=== PATIENT | female | born 1960 | race Caucasian/White ===

== ENCOUNTER 2020-01-28 08:07 | Outpatient (REF) | payer MEDICARE, MEDICAID, SELFPAY ==
[2020-01-28 09:09] LABS: MANUAL DIFF FLAG NO
[2020-01-28 09:19] LABS: Basophils Percent Auto 0.5 % (0-2); Eosinophils Absolute Auto 0.1 X10*3/uL (0.0-0.4); Eosinophils Percent Auto 1.4 % (0-4); Hematocrit 40.3 % (37-47); Hemoglobin 13.4 g/dl (12.0-16.0); Imm Gran Abs Auto 0.01 X10*3/uL (0.00-0.03); Imm Gran Pct Auto 0.2 % (0.0-0.4); Lymphocytes Absolute Auto 1.9 X10*3/uL (1.2-4.9); Lymphocytes Percent Auto 32.1 % (20-40); Mean Corpuscular HGB Conc 33.3 g/dl (31.0-35.0); Mean Corpuscular Volume 96.2 fL (80-98); Mean Platelet Volume 10.7 fL (9.4-12.3); Monocytes Absolute Auto 0.3 X10*3/uL (0.1-1.2); Monocytes Percent Auto 5.8 % (2-11); Neutrophils Absolute Auto 3.5 X10*3/uL (2.0-8.3); Platelet Count 213 X10*3/uL (160-400); Red Blood Count 4.19 X10*6/uL (4.20-5.50); Red Cell Distribution Width 12.3 % (11.0-16.0); White Blood Count 5.8 X10*3/uL (4.8-10.8)
[2020-01-28 09:39] LABS: Creatinine Urine 47.05 mg/dL; Microalbum/Creatinine Ratio Ur 48.8 ug/mg cr
[2020-01-28 09:41] LABS: Alanine Aminotransferase 14 U/L (0-31); Albumin Level 4.6 g/dL (3.5-5.0); Alkaline Phosphatase 77 U/L (39-117); Anion Gap 11 (12-20); Aspartate Amino Transferase 22 U/L (5-31); Bilirubin Total 0.5 mg/dL (0.0-1.0); Blood Urea Nitrogen 13 mg/dL (9-16); Calcium 8.8 mg/dL (8.4-10.2); Carbon Dioxide 29 mmol/L (22-29); Chloride 101 mmol/L (96-108); Cholesterol 216 mg/dL; Estimated Glomerular Filt Rate > 60; Glucose Fasting 91 mg/dL (60-99); HDL Cholesterol 72 mg/dL; LDL Cholesterol Calculated 134 mg/dl; Potassium 4.2 mmol/l (3.3-5.1); Sodium 137 mmol/L (135-145); Total Protein 7.2 g/dL (6.5-8.0); Triglycerides 51 mg/dL
== END 2020-01-28 08:08 | disposition home or self-care (01) ==
LOC: HO.LAB 08:07
PROVIDERS: Visit Provider Family Medicine
DX: Z00.00 Encounter for general adult medical examination without abnormal findings (principal)
CPT/HCPCS: 36415; 80053; 80061; 82043; 85025

== ENCOUNTER 2020-02-04 10:35 | Outpatient (REF) | payer MEDICARE, MEDICAID, SELFPAY ==
--- NOTE | 2020-02-04 13:18 | XR_ITS ---
EXAMINATION: XR ANKLE, LEFT CLINICAL INFORMATION: Pain left ankle and joints of the left foot. COMPARISON: Radiographs left ankle and foot 12/05/2019 TECHNIQUE: AP, lateral, and mortise views of the left ankle. FINDINGS: There is no fracture, dislocation, or visible ankle capsular effusion. The malleoli are intact and the ankle mortise is symmetric. The talar dome shows no osteochondral lesion. There is no joint narrowing or erosive change or visible chondrocalcinosis. The subtalar joint is unremarkable. The retrocalcaneal recess is preserved. No calcaneal spurring. XR/XR ankle LT min 3V IMPRESSION: Normal left ankle.
[2020-02-04 14:21] LABS: Rheumatoid Factor < 15.0 IU/mL (<15.0)
[2020-02-04 14:27] LABS: Erythrocyte Sedimentation Rate 11 MM/HR (0-20)
[2020-02-05 14:21] LABS: CRP High Sensitivity 0.7 mg/L
[2020-02-06 12:56] LABS: Scleroderma 70 Antibody 2.4 POS AI (<1.0 NEG)
[2020-02-06 14:52] LABS: Anti Nuclear Antibody Screen NEGATIVE (NEGATIVE)
[2020-02-06 17:12] LABS: Cyclic Citrullinated Peptide <16 UNITS
== END 2020-02-04 10:36 | disposition home or self-care (01) ==
LOC: HO.WFDLDS 10:35
PROVIDERS: PCP Family Medicine; Visit Provider Family Medicine
DX: M25.541 Pain in joints of right hand (principal); M25.542 Pain in joints of left hand; M25.572 Pain in left ankle and joints of left foot
CPT/HCPCS: 36415; 73610; 85652; 86038; 86039; 86141; 86200; 86235; 86431

== ENCOUNTER 2020-04-21 11:00 | Outpatient (RCR) | payer MEDICARE, MEDICAID, SELFPAY ==
--- NOTE | 2020-03-17 11:30 | MHC.PT.EP ---
[facility] [place] Office [place] Office [place] Office [address] Jamil Reynolds [address] [phone] F: [phone] F: [phone] F: [phone] F: [phone] Physical Therapy Plan of Care Date of Evaluation: 03/17/20 Date of Surgery: NA Diagnosis: PAIN IN L ANKLE AND FOOT. HX OF FIBROMYALGIA AND POLYARTHRALGIA Assessment: Pt IS 59 YO F REFERRED TO PT FROM DR QUESADA WITH PAIN IN L ANKLE AND JOINTS OF L FOOT. Pt REPORTS SHE FELL DOWN A FLIGHT (12 STAIRS) IN JANUARY WITH PAIN AND SWELLING L ANKLE. HAS HAD XRAY (NEG FOR FX). USED CRUTCHES AND AIR CAST FOR ABOUT 1 MONTH. Pt REPORTS CONTINUED LIMIT IN MOTION AND PAIN WITH CERTAIN MOVEMENTS OF ANKLE AND WITH PROLONGED STAND/WALK.PRESENTS WITH DECREASED L ANKLE ROM AND STRENGTH. NEG LIMP WITH GT TODAY, DECREASED ABILITY TO SLS L. SHOULD BENEFIT FROM PT TO ADDRESS THESE ISSUES. Frequency and Duration: The patient will be seen 2X/WK X 6 WKS Short Term Goals: 1. I HEP WITH DC EX PLAN 2. INCREASED AWARENESS ANKLE CARE (ICE ELEV PRN) 3. 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 DECREASED PAIN AT LEAST 50% WITH ADLS 2. L ANKLE ROM DF TO 5 DEGREES, PF TO 45 DEGREES, INV TO 25, EVERSION TO 10 3. INCREASED L ANKLE STRENGTH 1/2 -1 MM GRADE T/O 4. SLS L AT LEAST 10 SEC 5. ABLE TO PERF B HEEL RAISE AND TOE RAISE IN STAND WITHOUT NEED TO HOLD ON FOR SUPPORT Treatment Plan: Modalities to reduce pain, spasms and effusion. Manual therapy to restore motion and function. Therapeutic exercise to improve strength and flexibility. Neuromuscular re-education for posture and balance. Therapeutic activities to return to functional activities of daily living. Electronically signed by: HERMILO SCHWARZ PT Please sign and return to therapist. Thank you for your referral.
--- NOTE | 2020-05-05 08:39 | MHC.PT.DC ---
[facility] [place] Office [place] Office [place] Office [address] [phone] F: [phone] F: [phone] F: [phone] F: [phone] Physical Therapy Discharge Report Diagnosis: PAIN IN L ANKLE AND FOOT. HX OF FIBROMYALGIA AND POLYARTHRALGIA Date of Surgery: NA Date of Evaluation: 03/17/20 Date of Discharge: 05/05/20 Treatments to Date: 5 Cancellations to Date: 1 No Shows to Date: 0 Discharge Status: Achieved Goals Improved Function Independent with HEP Discharge Summary: HAS MET PT GOALS, GOOD PERF EXS. CHALLENGED WITH PROPRIOCEPTION WORK (TO WORK ON SLS AT HOME), SORE AFTER SESSION. ED RE ICE AT LAST SESSION Pt ED TO 1 MORE VISIT (IN 2 WEEKS ) TO ASSESS PROGRESS ON OWN AND ABILITY TO PERF STRETCHES/EXS WITHOUT SIGNIF INCREASE IN SXS. Pt WILL CALL TO CX IF DOING FINE. Pt DID CALL TO SAY SHE FEELS BETTER AND WOULD LIKE TO BE DISCHARGED AND CANCELLED HER LAST SCHEDULED APPT FOR 05/05 [ End ] Electronically signed by: HERMILO SCHWARZ PT Please sign and return to therapist. Thank you for your referral.
== END 2020-05-05 08:41 | disposition other institution (70) ==
LOC: HO.PTWFD 11:00
PROVIDERS: Visit Provider Family Medicine
DX: M25.572 Pain in left ankle and joints of left foot (principal)
CPT/HCPCS: 97110; 97140; 97162; 97164; 97530

== ENCOUNTER 2020-05-06 15:46 | Outpatient (REF) | payer MEDICARE, MEDICAID, SELFPAY ==
[2020-05-06 17:34] LABS: Glucose Urine UA NEG (NEG); Leukocyte Esterase Urine NEG (NEG); Nitrite Urine NEG (NEG); Specific Gravity - Urine 1.025 (1.005-1.025); Urine Blood NEG (NEG); Urine Ketones NEG (NEG); Urine Protein 1+ MG/DL (NEG-TRACE)
[2020-05-06 18:09] LABS: Creatinine Urine 213.98 mg/dL; Protein/Creatinine Ratio, Ur 0.26 (<0.2); Total Protein Urine Random 56 mg/dL (<12)
[2020-05-06 18:14] LABS: Appearance Urine CLEAR; Color Urine YELLOW
[2020-05-06 18:25] LABS: RBC Urine 0 /HPF (0); Renal Epithelial Cells Urine 1+ /LPF; Squamous Epithelial Cell Urine 1+ /LPF
[2020-05-07 12:52] LABS: Antibody to SS-A Antigen <1.0 NEG AI (<1.0 NEG); Antibody to SS-B Antigen <1.0 NEG AI (<1.0 NEG)
[2020-05-07 14:27] LABS: Prot Elec - Albumin 4.7 g/dL (3.8-4.8); Prot Elec - Alpha1 0.2 g/dL (0.2-0.3); Prot Elec - Alpha2 0.8 g/dL (0.5-0.9); Prot Elec - Beta 1 0.4 g/dL (0.4-0.6); Prot Elec - Beta 2 0.3 g/dL (0.2-0.5); Prot Elec - Gamma 0.9 g/dL (0.8-1.7); Prot Elec - Total Protein 7.4 g/dL (6.1-8.1)
[2020-05-08 12:57] LABS: IgA 169 mg/dL (47-310); IgG 1009 mg/dL (600-1640); IgM 108 mg/dL (50-300)
[2020-05-10 12:47] LABS: PEU-Protein Creat Ratio Rand 0.265 (0.021-0.161); PEU-Rand. Prot/Creat Ratio 265 mg/g creat (21-161); PEU-Random Ur. Gamma Globulin 0 %; PEU-Random Urine A1 Globulin 0 %; PEU-Random Urine A2 Globulin 0 %; PEU-Random Urine Albumin 100 %; PEU-Random Urine Beta Globulin 0 %; PEU-Random Urine Creatinine 200 mg/dL (20-275); PEU-Random Urine Protein 53 mg/dL (5-24)
== END 2020-05-06 15:47 | disposition home or self-care (01) ==
LOC: HO.LAB 15:46
PROVIDERS: PCP Family Medicine; Visit Provider Student in an Organized Health Care Education/Training Program
DX: M79.7 Fibromyalgia (principal); R26.89 Other abnormalities of gait and mobility; M25.50 Pain in unspecified joint; Z79.899 Other long term (current) drug therapy
CPT/HCPCS: 81001; 82570; 82784; 84155; 84156; 84165; 84166; 86235; 86334; 86335; 99202

== ENCOUNTER → 2020-06-11 13:23 | Outpatient (BNVA) | payer MEDICARE, MEDICAID, SELFPAY | PROVIDERS: PCP Family Medicine; Visit Provider Student in an Organized Health Care Education/Training Program | DX: M25.50 Pain in unspecified joint (principal); R26.89 Other abnormalities of gait and mobility | CPT/HCPCS: 99212 ==

== ENCOUNTER 2020-06-25 08:36 | Outpatient (REF) | payer MEDICARE, MEDICAID, SELFPAY ==
--- NOTE | ~2020-06-25 | MR_ITS ---
EXAMINATION: MR BRAIN WITHOUT CONTRAST CLINICAL INFORMATION: Brain fog with headaches. Patient dropping things and off-balance. Fatigue. Left eye twitching. COMPARISON: None. TECHNIQUE: Multiplanar, multisequence imaging of the brain was performed without contrast. FINDINGS: No diffusion abnormalities are identified to suggest an acute or subacute infarct. The ventricles are normal in size. No mass effect or midline shift is seen. Nonspecific mild scattered white matter signal changes noted in both hemispheres. No extra-axial fluid collections are seen. The brainstem and cerebellum are normal. The gradient refocused acquisition is normal. The craniovertebral junction, marrow signal, and midline structures are normal. The major intracranial flow voids at the level of the [place] are preserved. The dural venous sinus flow voids are maintained. The mastoid air cells and paranasal sinuses are well aerated. There is moderate disc space narrowing with a retrosubluxation and disc-osteophyte complex at the C3-C4 level. MR/MR head/brain wo con IMPRESSION: No acute process. Nonspecific mild scattered white matter signal changes.
== END 2020-06-25 08:37 | disposition home or self-care (01) ==
LOC: HO.MRI 08:36
PROVIDERS: Visit Provider Psychiatry & Neurology Neurology
DX: G37.9 Demyelinating disease of central nervous system, unspecified (principal)
CPT/HCPCS: 70551

== ENCOUNTER 2020-08-16 12:10 | Outpatient (REF) | payer MEDICARE, MEDICAID, SELFPAY ==
[2020-08-16 14:13] LABS: C Reactive Protein 0.04 mg/dL (< or = 0.50)
[2020-08-16 14:31] LABS: Folate 16.4 ng/mL (> or = 4.0); Vitamin B12 279 pg/mL (200-900)
[2020-08-16 14:35] LABS: Erythrocyte Sedimentation Rate 14 MM/HR (0-20)
[2020-08-18 05:42] LABS: Lyme Abs Screen <0.90 index
[2020-08-18 13:41] LABS: Anti Nuclear Antibody Screen NEGATIVE (NEGATIVE)
[2020-08-22 14:11] LABS: Vitamin D 25-OH, D2 <4 ng/mL; Vitamin D 25-OH, D3 37 ng/mL; Vitamin D 25-OH, Total 37 ng/mL (30-100)
== END 2020-08-16 12:11 | disposition home or self-care (01) ==
LOC: HO.LAB 12:10
PROVIDERS: PCP Family Medicine; Visit Provider Psychiatry & Neurology Neurology
DX: M79.7 Fibromyalgia (principal)
CPT/HCPCS: 36415; 82306; 82550; 82607; 82746; 85652; 86038; 86039; 86140; 86617; 86618

== ENCOUNTER 2021-03-21 10:46 | Outpatient (REF) | payer MEDICARE, MEDICAID, SELFPAY ==
[2021-03-21 14:12] LABS: Free T4 (Free Thyroxine) 1.05 ng/dL (0.71-1.85); Thyroid Stimulating Hormone 11.09 uIU/mL (0.32-4.0)
[2021-03-22 08:46] LABS: Triiodothyronine T3 Total 85 ng/dL (76-181)
== END 2021-03-21 10:47 | disposition home or self-care (01) ==
LOC: HO.WFDLDS 10:46
PROVIDERS: Visit Provider Family Medicine
DX: E03.9 Hypothyroidism, unspecified (principal)
CPT/HCPCS: 36415; 84439; 84443; 84480

== ENCOUNTER 2021-05-04 09:37 | Outpatient (REF) | payer MEDICARE, MEDICAID, SELFPAY ==
[2021-05-04 11:11] LABS: Alanine Aminotransferase 13 U/L (0-31); Albumin Level 4.4 g/dL (3.5-5.0); Alkaline Phosphatase 81 U/L (39-117); Anion Gap 11 (12-20); Aspartate Amino Transferase 19 U/L (5-31); Bilirubin Total 0.8 mg/dL (0.0-1.0); Blood Urea Nitrogen 14 mg/dL (9-16); Carbon Dioxide 28 mmol/L (22-29); Chloride 105 mmol/L (96-108); Estimated Glomerular Filt Rate > 60; Glucose Random 95 mg/dL (60-115); Potassium 4.3 mmol/L (3.3-5.1); Sodium 140 mmol/L (135-145); Total Protein 6.8 g/dL (6.5-8.0)
[2021-05-04 11:23] LABS: Free T4 (Free Thyroxine) 1.52 ng/dL (0.71-1.85); Thyroid Stimulating Hormone 0.13 uIU/mL (0.32-4.0)
[2021-05-05 07:31] LABS: Triiodothyronine T3 Total 130 ng/dL (76-181)
== END 2021-05-04 09:38 | disposition home or self-care (01) ==
LOC: HO.WFDLDS 09:37
PROVIDERS: Visit Provider Family Medicine
DX: E03.9 Hypothyroidism, unspecified (principal); R53.83 Other fatigue
CPT/HCPCS: 36415; 80053; 84439; 84443; 84480

== ENCOUNTER 2021-09-20 12:32 | Outpatient (REF) | payer MEDICARE, MEDICAID, SELFPAY ==
[2021-09-20 13:17] LABS: MANUAL DIFF FLAG NO
[2021-09-20 13:24] LABS: Basophils Percent Auto 0.5 % (0-2); Eosinophils Absolute Auto 0.1 X10*3/uL (0.0-0.4); Eosinophils Percent Auto 1.3 % (0-4); Hematocrit 39.6 % (37.0-47.0); Hemoglobin 13.1 g/dl (12.0-16.0); Imm Gran Abs Auto 0.02 X10*3/uL (0.00-0.03); Imm Gran Pct Auto 0.3 % (0.0-0.4); Lymphocytes Absolute Auto 2.3 X10*3/uL (1.2-4.9); Lymphocytes Percent Auto 37.9 % (20-40); Mean Corpuscular HGB Conc 33.1 g/dl (31.0-35.0); Mean Corpuscular Hemoglobin 31.6 pg (27.0-33.0); Mean Corpuscular Volume 95.7 fL (80.0-98.0); Mean Platelet Volume 11.1 fL (9.4-12.3); Monocytes Absolute Auto 0.3 X10*3/uL (0.1-1.2); Monocytes Percent Auto 5.3 % (2-11); Neutrophils Absolute Auto 3.3 x10*3/uL (2.0-8.3); Neutrophils Percent Auto 54.7 % (45-73); Platelet Count 217 X10*3/uL (160-400); Red Blood Count 4.14 X10*6/uL (4.20-5.50); Red Cell Distribution Width 12.8 % (11.0-16.0)
[2021-09-20 13:52] LABS: Alanine Aminotransferase 13 U/L (0-31); Albumin Level 4.5 g/dL (3.5-5.0); Alkaline Phosphatase 84 U/L (39-117); Anion Gap 11 (12-20); Aspartate Amino Transferase 22 U/L (5-31); Bilirubin Total 0.5 mg/dL (0.0-1.0); Blood Urea Nitrogen 9 mg/dL (9-16); Calcium 9.1 mg/dL (8.4-10.2); Carbon Dioxide 28 mmol/L (22-29); Chloride 105 mmol/L (96-108); Cholesterol 210 mg/dL; Estimated Glomerular Filt Rate > 60; Glucose Fasting 88 mg/dL (60-99); HDL Cholesterol 76 mg/dL; LDL Cholesterol Calculated 125 mg/dl; Sodium 139 mmol/L (135-145); Triglycerides 47 mg/dL
[2021-09-20 14:17] LABS: Free T4 (Free Thyroxine) 1.33 ng/dL (0.71-1.85)
[2021-09-22 13:21] LABS: Triiodothyronine T3 Total 88 ng/dL (76-181)
== END 2021-09-20 12:33 | disposition home or self-care (01) ==
LOC: HO.WFDLDS 12:32
PROVIDERS: Visit Provider Family Medicine
DX: Z00.00 Encounter for general adult medical examination without abnormal findings (principal); E03.9 Hypothyroidism, unspecified
CPT/HCPCS: 36415; 80053; 80061; 84439; 84443; 84480; 85025

== ENCOUNTER 2021-09-22 06:39 | Outpatient (REF) | payer MEDICARE, MEDICAID, SELFPAY ==
[2021-09-22 09:19] LABS: Appearance Urine CLEAR; Color Urine STRAW; Glucose Urine UA NEG (NEG); Leukocyte Esterase Urine NEG (NEG); Nitrite Urine NEG (NEG); PH 5.5 (5.0-8.0); Specific Gravity - Urine <= 1.005 (1.005-1.025); Urine Blood NEG (NEG); Urine Ketones NEG (NEG); Urine Protein NEG (NEG-TRACE)
== END 2021-09-22 06:40 | disposition home or self-care (01) ==
LOC: HO.LAB 06:39
PROVIDERS: PCP Family Medicine; Visit Provider Family Medicine
DX: Z00.00 Encounter for general adult medical examination without abnormal findings (principal)
CPT/HCPCS: 81003

== ENCOUNTER 2022-09-22 09:25 | Outpatient (AMB) | payer MEDICARE, MEDICAID, SELFPAY ==
--- NOTE | 2022-09-22 09:28 | A.OFFPC_ITS ---
Vital Signs 09/22/22 09:31 Height 5 ft 4 in Weight 121 lb 8 oz BMI 20.9 BP 120/70 Blood Pressure Location Lt brachial Position Sitting Pulse 83 Pulse Source Pulse Oximeter Pulse Oximetry (%) 99 Oxygen Delivery Method Room Air Intake Visit Reasons: Discuss health concerns Intake Note: Patient would like to talk about medical concerns, would like to talk about blood work done. Allergies ibuprofen [IBUPROFEN] Allergy (Intermediate, Verified 09/22/22 09:33) HIVES Penicillins [PENICILLINS] Adverse Reaction (Severe, Verified 09/22/22 09:33) Anaphylaxis Medication List - Last Reconciled 09/22/22 by Niels Amaral MD fluticasone propionate 50 mcg/actuation (Flonase Allergy Relief) 1 spray intranasal Q12H 30 days levothyroxine 125 mcg PO QAM 90 days risperidone 0.25 mg PO BID sertraline 125 mg (2.5 x 50 mg) PO DAILY 90 days Tobacco use date assessed: 09/22/22 Dental Screening Dental Screen Date: 09/22/22 Did you have a dental visit in the last 12 months?: Yes Did you have a dental problem in the last 6 months where you did not have access to dental care?: No Was dental information given to patient?: No HPI Discuss health concerns HPI Details 62 y/o female presents to discuss health concerns. She would like to talk about blood work. She states she is concerned about being insulin resistance. Pt reports concerns about her memory and reports fatigue/irritability. She states she has a therapist but not a psychiatrist. She reports she does wake up a lot and has fatigue in the day time. She states she has not been evaluated for sleep apnea. She mentions she is afraid to eat and is afraid of putting on weight. She reports she has been off her risperidone 0.25mg b.i.d. and any of her me dications for 4 weeks. She reports she had been taking her risperidone t.i.d. She denies any SI/HI at the moment. [facility]LY [facility] Medical History Depression Goiter Surgical History History of partial thyroidectomy Hx of eye surgery Family History Father CVD (cardiovascular disease) Hypertension Hypothyroidism Mother Hypothyroidism Other Mental health disorder Substance use disorder Social History Housing: Apartment Alcohol intake: never Patient Tobacco Use Status: Former Tobacco user Tobacco use type: Cigarette e-Cigarette/Vaping Use: Never Used Second Hand Smoke Exposure: No service: No Current occupational status: disabled Current occupational exposures/hazards: No Cognitive needs: No Hearing needs: No Vision needs: No Questionnaire Thrive Questionnaire Date Thrive assessed: 03/29/21 SIDNEY-7 AMB Questionnaire SIDNEY-7 Date SIDNEY - 7 assessed: 09/20/21 Source: Developed by Drs. Frederic Rushing, Fide Harrington, Jeremiah Stone and colleagues, with an educational lorena from [employer]. Review of Systems Const Reports fatigue Psych Reports anxiety and Reports depression Endo Reports fatigue Physical exam (Primary Care) Vital Signs: Last Vital Signs Pulse 83 09/22/22 09:31 BP 120/70 09/22/22 09:31 Pulse Ox 99 09/22/22 09:31 Oxygen Delivery Method Room Air 09/22/22 09:31 BMI result Body Mass Index 20.9 Tobacco/Smoking Status: Tobacco use Status Tobacco use date assessed 09/22/22 09/22/22 09:35 Patient Tobacco Use Status Former Tobacco user 09/22/22 09:29 Tobacco use type Cigarette 09/22/22 09:29 e-Cigarette/Vaping Use Never Used 09/22/22 09:29 Thrive Assessment: Date of Thrive Assessment Date Thrive assessed 03/29/21 09/22/22 09:29 Assessment and Plan Assessment & Plan (1) Bipolar disorder: Code(s): F31.9 - Bipolar disorder, unspecified Plan: Currently not taking her risperidone and encouraged her to resume this at twice a day dosing. Follow-up with therapist Offered referral to psychiatry and she wants to think about this (2) Hypothyroidism (acquired): Code(s): E03.9 - Hypothyroidism, unspecified Plan: Patient had been lost to follow-up and needs thyroid hormone testing which is ordered (3) Depression: Code(s): F32.9 - Major depressive disorder, single episode, unspecified Plan: Currently no SI/HI Followed by therapist As above, offered psychiatry and she is thinking about this (4) Hypersomnolence: Code(s): G47.10 - Hypersomnia, unspecified Plan: Daytime sleepiness and some waking while sleeping Referred to Sleep Medicine to rule out sleep apnea (5) Fatigue: Code(s): R53.83 - Other fatigue Plan: May be secondary to something like sleep apnea or may need medication adjustment Already encouraged resumption of her risperidone Follow-up with therapist Checking labs (6) Memory change: Code(s): R41.3 - Other amnesia Plan: May be secondary to mood disorder but unclear if there is a primary neurological issue Referred to neuropsych to evaluate Orders: Orders Vitamin B12 and Folate Today E53.8 - Deficiency of other specified B group hayden mins Comprehensive [place]. Panel Fast Today Z00.00 - Encounter for general adult medical examination without abnormal findings Lipid Panel Today Z00.00 - Encounter for general adult medical examination without abnormal findings Magnesium Today R53.83 - Other fatigue Prostate Specific Antigen Scr Today Z12.5 - Encounter for screening for malignant neoplasm of prostate TSH reflex Free T4 Today Z00.00 - Encounter for general adult medical examination without abnormal findings Vitamin D 25-OH Total Today E55.9 - Vitamin D deficiency, unspecified Microalbumin, Random (w Creat) Today I10 - Essential (primary) hypertension Complete Blood Count Auto Diff Today Z00.00 - Encounter for general adult medical examination without abnormal findings UA and rflx microscopic Today Z00.00 - Encounter for general adult medical examination without abnormal findings Follicle Stimulating Hormone Today R53.83 - Other fatigue Lutenizing Hormone Today R53.83 - Other fatigue Referrals Sleep Medicine Referral G47.10 - Hypersomnia, unspecified, R53.83 - Other fatigue Neuropsychiatry Referral R41.3 - Other amnesia Nurse Navigator Referral R53.83 - Other fatigue Coding Level of Care Code Est Pt Level 4 (46702) Diagnoses Bipolar disorder F31.9 Hypothyroidism (acquired) E03.9 Depression F32.9 Hypersomnolence G47.10 Fatigue R53.83 Memory change R41.3
[2022-09-22 09:31] VITALS: BP 120/70; PULSE 83; O2SAT 99; BMI 20.9
== END 2022-09-22 10:44 | disposition home or self-care (01) ==
PROVIDERS: PCP Family Medicine; Visit Provider Family Medicine
DX: F31.9 Bipolar disorder, unspecified (principal); E03.9 Hypothyroidism, unspecified; G47.10 Hypersomnia, unspecified; R53.83 Other fatigue; R41.3 Other amnesia
CPT/HCPCS: 99214

== ENCOUNTER 2022-09-27 11:25 | Outpatient (REF) | payer MEDICARE, MEDICAID, SELFPAY ==
[2022-09-27 11:48] LABS: MANUAL DIFF FLAG NO
[2022-09-27 12:07] LABS: Basophils Percent Auto 0.4 % (0-2); Eosinophils Absolute Auto 0.1 X10*3/uL (0.0-0.4); Eosinophils Percent Auto 1.3 % (0-4); Hemoglobin 13.1 g/dl (12.0-16.0); Imm Gran Abs Auto 0.02 X10*3/uL (0.00-0.03); Imm Gran Pct Auto 0.4 % (0.0-0.4); Lymphocytes Absolute Auto 1.9 X10*3/uL (1.2-4.9); Mean Corpuscular HGB Conc 34.5 g/dl (31.0-35.0); Mean Corpuscular Hemoglobin 31.3 pg (27.0-33.0); Mean Corpuscular Volume 90.9 fL (80.0-98.0); Mean Platelet Volume 10.9 fL (9.4-12.3); Monocytes Absolute Auto 0.3 X10*3/uL (0.1-1.2); Monocytes Percent Auto 6.2 % (2-11); Neutrophils Percent Auto 56.7 % (45-73); Platelet Count 211 X10*3/uL (160-400); Red Blood Count 4.18 X10*6/uL (4.20-5.50); Red Cell Distribution Width 12.2 % (11.0-16.0); White Blood Count 5.3 X10*3/uL (4.8-10.8)
[2022-09-27 12:17] LABS: Appearance Urine Clear; Color Urine Yellow; Glucose Urine UA Negative (Negative); Leukocyte Esterase Urine Moderate (2+) (Negative); Nitrite Urine Negative (Negative); PH 5.5 (5.0-9.0); Specific Gravity - Urine 1.015 (1.005-1.025); UMIC TRIGGER UA YES; Urine Blood Negative (Negative); Urine Ketones 15 mg/dL (Negative); Urine Protein Negative (Neg-Trace)
[2022-09-27 12:30] LABS: Bacteria Urine None Seen (None Seen); Hyaline Casts Urine 0-2 /LPF (0-2); RBC Urine 0-2 /HPF (0-2); Squamous Epithelial Cell Urine 0-2 /HPF (0-2); WBC Urine 0-5 /HPF (0-5)
[2022-09-27 12:44] LABS: Creatinine Urine 140.33 mg/dL
[2022-09-27 13:35] LABS: Folate 15.8 ng/mL (> or = 4.0); Prostate Specific Antigen Scr < 0.10 ng/mL; Vitamin B12 390 pg/mL (200-900)
[2022-09-28 02:11] LABS: Alanine Aminotransferase 16 U/L (0-31); Albumin Level 4.5 g/dL (3.5-5.0); Alkaline Phosphatase 88 U/L (39-117); Anion Gap 15 (12-20); Aspartate Amino Transferase 25 U/L (5-31); Bilirubin Total 0.9 mg/dL (0.0-1.0); Blood Urea Nitrogen 16 mg/dL (9-16); Calcium 9.2 mg/dL (8.4-10.2); Carbon Dioxide 25 mmol/L (22-29); Chloride 106 mmol/L (96-108); Cholesterol 191 mg/dL; Estimated Glomerular Filt Rate > 60; Glucose Fasting 75 mg/dL (60-99); HDL Cholesterol 60 mg/dL; LDL Cholesterol Calculated 118 mg/dl; Magnesium 1.9 mg/dL (1.6-2.6); Potassium 4.1 mmol/L (3.3-5.1); Sodium 142 mmol/L (135-145); TSH reflex Free T4 0.04 uIU/mL (0.32-4.0); Total Protein 7.2 g/dL (6.5-8.0); Triglycerides 68 mg/dL; Vitamin D 25-OH Total 36.5 ng/mL (>30)
[2022-09-28 02:41] LABS: Free T4 (Free Thyroxine) 1.92 ng/dL (0.71-1.85)
[2022-09-29 13:47] LABS: Follicle Stimulating Hormone 114.8 mIU/mL; Lutenizing Hormone 56.7 mIU/mL
== END 2022-09-27 11:26 | disposition home or self-care (01) ==
LOC: HO.LAB 11:25
PROVIDERS: PCP Family Medicine; Visit Provider Family Medicine
DX: Z00.00 Encounter for general adult medical examination without abnormal findings (principal); E53.8 Deficiency of other specified B group vitamins; I10 Essential (primary) hypertension; E55.9 Vitamin D deficiency, unspecified; R53.83 Other fatigue
CPT/HCPCS: 36415; 80053; 80061; 81001; 82043; 82306; 82607; 82746; 83001; 83002; 83735; 84153; 84439; 84443; 85025

== ENCOUNTER 2024-08-05 16:01 | Outpatient (AMB) | payer MEDICARE, MEDICAID, SELFPAY ==
--- NOTE | 2024-08-05 16:50 | A.OFFPC_ITS ---
Vital Signs 08/05/24 16:52 Height 5 ft 4 in Weight 127 lb 6 oz BMI 21.9 BP 122/64 Blood Pressure Location Lt brachial Position Sitting Respiration 16 Pulse 79 Pulse Source Pulse Oximeter Temp 97.5 F Temp Source Oral Pulse Oximetry (%) 99 Oxygen Delivery Method Room Air Intake Visit Reasons: Annual Physical Allergies ibuprofen [IBUPROFEN] Allergy (Intermediate, Verified 08/05/24 16:50) HIVES Penicillins [PENICILLINS] Adverse Reaction (Severe, Verified 08/05/24 16:50) Anaphylaxis Tobacco use date assessed: 08/05/24 Dental Screening Dental Screen Date: 08/05/24 Did you have a dental visit in the last 12 months?: Yes Did you have a dental problem in the last 6 months where you did not have access to dental care?: No Was dental information given to patient?: No HPI Annual Physical HPI Details 63 y/o female presents for an extended e xam with f/u labs and health maintenance. No recent labs to review. PHQ-9 6, SIDNEY-7 7 today. Has complaints of an itchy rash. Some discoloration of her skin. Pt reports muscle cramps of her feet. [facility] Medical History Depression Goiter Surgical History History of partial thyroidectomy Hx of eye surgery Family History Father CVD (cardiovascular disease) Hypertension Hypothyroidism Mother Hypothyroidism Other Mental health disorder Substance use disorder Social History Housing: Apartment Alcohol intake: never Patient Tobacco Use Status: Former Tobacco user Tobacco use type: Cigarette e-Cigarette/Vaping Use: Never Used Second Hand Smoke Exposure: No service: No Current occupational status: disabled Current occupational exposures/hazards: No Cognitive needs: No Hearing needs: No Vision needs: No Questionnaire PHQ-9 Over the last 2 weeks, how often have you been bothered by any of the following problems? 1. Little interest or pleasure in doing things: several days 2. Feeling down, depressed, or hopeless: several days 3. Trouble falling or staying asleep, or sleeping too much: not at all 4. Feeling tired or having little energy: several days 5. Poor appetite or overeating: several days 6. Feeling bad about yourself - or that you are a failure or have let yourself or your family down: not at all 7. Trouble concentrating on things, such as reading the newspaper or watching television: several days 8. Moving or speaking so slowly that other people could have noticed. Or the opposite - being so fidgety or restless that you have been moving around a lot more than usual: several days 9. Thoughts that you would be better off or of hurting yourself in some way: not at all Total score: 6 Depression Screening Interpretation: Positive Depression Screening Done: Yes Source: Developed by Drs. Frederic Rushing, Fide Harrington, Jeremiah Stone and colleagues, with an educational lorena from [employer]. Thrive Questionnaire Date Thrive assessed: 08/05/24 I am a: Patient What is your living situation today?: I have a steady place to live Within the past 12 months, did the food you bought not last and you didn't have the money to get more?: Never true Within the past 12 months, did you worry whether your food would run out before you got money to buy more?: Never true Do you have trouble paying for medicines?: I choose not to answer this question Do you have trouble getting transportation to medical appointments?: No Do you have trouble paying your heating and electricity bill?: No Do you have trouble taking care of your child, family member or friend?: I choose not to answer this question Do you have trouble with day-to-day activities such as bathing, preparing meals, shopping, managing finances, etc.?: I choose not to answer this question Are you currently unemployed and looking for a job?: I choose not to answer this question Are you interested in more education?: I choose not to answer this question Please select the resources that you would like help with: None Currently or been in a relationship where the following occur: No concerns reported and I choose not to answer THRIVE Score: 0 AUDIT C Alcohol Use Questionnaire (AUDIT-C) 1. How often do you have a drink containing alcohol?: Never Total Score: 0 SIDNEY-7 AMB Questionnaire SIDNEY-7 Date SIDNEY - 7 assessed: 09/20/21 Feeling nervous, anxious, or on edge: 1 = Several days Not being able to stop or control worryin = Several days Worrying too much about different things: 1 = Several days Trouble relaxin = Several days Being so restless that it is hard to sit still: 1 = Several days Becoming easily annoyed or irritable: 1 = Several days Feeling afraid as if something awful might happen: 1 = Several days Total SIDNEY-7 score (0-4 normal; 5-9 mild; 10-14 moderate; 15-21 severe): 7 Source: Developed by Drs. Frederic Rushing, Fide Harrington, Jeremiah Stone and colleagues, with an educational lorena from [employer]. SIDNEY-7 Assessment Billing SIDNEY-7 Assessment Tool: SIDNEY-7 Assessment 18950 Review of Systems Const Denies chills, Denies fatigue, Denies fever(s), Denies headache(s) and Denies weakness Eyes Denies change in vision ENT Denies dizziness, Denies headache(s), Denies hearing loss, Denies nasal congestion, Denies sinus pain, Denies sinus pressure and Denies sore throat Card Denies chest pain, Denies lightheadedness, Denies dyspnea and Denies other (palpitations) Resp Denies cough, Denies dyspnea and Denies wheezing GI Denies abdominal pain, Denies melena, Denies hematochezia, Denies change in bowel habits, Denies dyspepsia and Denies nausea Denies hematuria and Denies dysuria Musc Denies abnormal gait, Denies myalgias, Denies arthralgias, Denies numbness and Denies tingling Skin/Breast Reports rash, Denies unusual bruising and Denies wounds Neuro Denies abnormal gait, Denies dizziness, Denies headache(s), Denies memory loss, Denies numbness, Denies Sensory deficit (Neuro), Denies tingling and Denies weakness Psych Reports anxiety, Reports depression and Denies memory loss Endo Denies cold intolerance, Denies fatigue, Denies heat intolerance, Denies polydipsia and Denies polyuria Cipriano/Lymph Denies easy bleeding and Denies easy bruising Aller/Immun Denies wheezing Physical exam (Primary Care) Vital Signs: Last Vital Signs Temp 97.5 F 08/05/24 16:52 Pulse 79 05/27/25 16:52 Resp 16 08/05/24 16:52 BP 122/64 08/05/24 16:52 Pulse Ox 99 08/05/24 16:52 Oxygen Delivery Method Room Air 08/05/24 16:52 BMI result Body Mass Index 21.9 Tobacco/Smoking Status: Tobacco use Status Tobacco use date assessed 08/05/24 08/05/24 16:53 Patient Tobacco Use Status Former Tobacco user 08/05/24 16:53 Tobacco use type Cigarette 08/05/24 16:53 e-Cigarette/Vaping Use Never Used 08/05/24 16:53 PHQ-9: PHQ-9 Score PHQ-9: Total score 6 08/05/24 17:20 Depression Screening Interpretation: Positive Thrive Assessment: Date of Thrive Assessment Date Thrive assessed 08/05/24 08/05/24 16:53 Currently or been in a relationship where the following occur: No concerns re ported and I choose not to answer Const General: no acute distress, well developed, alert and awake Nutritional Appearance: well nourished Orientation/consciousness: patient oriented x3 HENMT Head: Yes normocephalic and Yes atraumatic Ears: hearing grossly normal bilaterally and TM's normal bilaterally General nose exam: Normal external nose present and Normal nares present Mouth: Normal oral and palatal mucosa present and moist mucous membranes Teeth and gingiva: dentition normal Throat: Yes posterior oropharynx normal Eyes General: appearance normal, both eyes and all related structures Pupils: Equal, round and reactive pupils present and Pupil accommodation reflex normal EOM: EOMs intact bilaterally Neck Neck: Yes normal visual inspection, Yes no lymphadenopathy and Yes trachea midline Thyroid: Thyroid normal Carotids: no bruits Lymphatic: no lymphadenopathy noted Chest Chest palpation & inspection: normal inspection of the chest Resp Effort & Inspection: normal respiratory effort Auscultation: clear to auscultation bilaterally Cardio Rate: regular rate Rhythm: regular rhythm Heart sounds: S1 normal heart sound present, S2 normal heart sound present, no gallops, no murmurs and no rubs Bruits: no abdominal aortic bruits and no carotid bruits GI Palpation (GI): No Abdominal aortic bruit present, Soft to palpation, nontender, No hepatosplenomegaly present and No Rebound tenderness present Auscultation: normal bowel sounds General: Yes no CVA tenderness Back/Spine/Pelvis Back: no CVA tenderness Cervical Spine: cervical ROM normal and No Cervical spine tenderness Thoracic/Lumbar Spine: thoraco-lumbar ROM normal, No pain with thoraco-lumbar ROM, No thoracic spinal tenderness and No lumbar spinal tenderness Skin Lesions: no lesions Rashes: no rashes Trauma: no lacerations or abrasions Wounds: no wounds Nails: normal Neuro General: patient oriented x3 Cranial nerves: Yes Equal, round and reactive pupils present Cognition (Neuro): normal cognition Gait exam (Neuro): Normal gait present Motor exam (neuro): 5/5 motor strength present throughout Sensory Exam: No Sensory deficit (Neuro) Deep tendon reflexes (DTR's): Right patellar reflex intensity grade: 2+ and Left patellar reflex intensity grade: 2+ Extrem General: Yes normal to inspection and No edema Psych Appearance: grossly normal Affect: normal affect Attitude: cooperative Thought process: Normal thought process present Coding Level of Care Code Est Pt Level 4 (64483) Diagnoses Fibromyalgia M79.7 Rash R21 Muscle cramps R25.2 Screening for colon cancer Z. Breast cancer screening by mammogram Z. Screening for cervical cancer Z12.4 Adult general medical exam Z00.00 Additional Codes SIDNEY-7 Assessment Billing - SIDNEY-7 Assessment Tool: SIDNEY-7 Assessment 11280 ([id number]) Assessment & Plan Assessment & Plan (1) Fibromyalgia: Code(s): M79.7 - Fibromyalgia Category: Medical Plan: Encouraged regular exercise and stretching (2) Rash: Code(s): R21 - Rash and other nonspecific skin eruption Category: Medical Plan: Rash at L shoulder blade Will give her a steroid/Antifungal cream and as pt says she has tried many remedies already, will refer her to Derm as per her request. (3) Muscle cramps: Code(s): R25.2 - Cramp and spasm Category: Medical Plan: Hydrate well Checking labs Try Magnesium (4) Screening for colon cancer: Code(s): Z. - Encounter for screening for malignant neoplasm of colon Category: Medical Plan: Pt had colonoscopy about 5 yrs ago and was told to f/u after in 10 yrs (5) Breast cancer screening by mammogram: Code(s): Z03.11 - Encounter for screening mammogram for malignant neoplasm of breast Category: Medical Plan: Refuses mamograms Continue Self exams Will let me know if she has any concerns (6) Screening for cervical cancer: Code(s): Z12.4 - Encounter for screening for malignant neoplasm of cervix Category: Medical Plan: Declines referral for pap smear (7) Adult general medical exam: Code(s): Z00.00 - Encounter for general adult medical examination without abnormal findings Category: Medical Plan: 63-year-old?female?presents?for?extended?exam Encouraged?healthy?diet?with?active?lifestyle?of?exercise Orders: Orders Complete Blood Count Auto Diff 08/05/24 Z00.00 - Encounter for general adult medical examination without abnormal findings Lipid Panel 08/05/24 Z00.00 - Encounter for general adult medical examination without abnormal findings Microalbumin, Random (w Creat) 08/05/24 I10 - Essential (primary) hypertension UA CC w/rflx Micro + Cult 08/05/24 Z00.00 - Encounter for general adult medical examination without abnormal findings Triiodothyronine T3 Total 08/05/24 E03.9 - Hypothyroidism, unspecified Comprehensive [place]. Panel Fast 08/05/24 Z00.00 - Encounter for general adult medical examination without abnormal findings Thyroid Stimulating Hormone 08/05/24 E03.9 - Hypothyroidism, unspecified Free T4 (Free Thyroxine) 08/05/24 E03.9 - Hypothyroidism, unspecified Vitamin D 25-OH Total 08/05/24 E55.9 - Vitamin D deficiency, unspecified Vitamin B12 and Folate 08/05/24 E53.8 - Deficiency of other specified B group vitamins Referrals Dermatology Referral R21 - Rash and other nonspecific skin eruption Medications: New clotrimazole-betamethasone 1-0.05 % 1 appl topical BID 45 grams 0RF 2 weeks prednisone 3 tabs daily for 2 days, 2 tabs daily for 2 days, 1 tab daily for 2 days, 1/2 tab daily for 2 days PO daily orally daily; 13 tabs 0RF 8 days
[2024-08-05 16:52] VITALS: BP 122/64; PULSE 79; RESP 16; TEMP 36.4; O2SAT 99; BMI 21.9
== END 2024-08-05 17:05 | disposition home or self-care (01) ==
LOC: HO.HMCFM 16:02
PROVIDERS: PCP Family Medicine; Visit Provider Family Medicine
DX: M79.7 Fibromyalgia (principal); R21 Rash and other nonspecific skin eruption; R25.2 Cramp and spasm; Z12.11 Encounter for screening for malignant neoplasm of colon; Z12.31 Encounter for screening mammogram for malignant neoplasm of breast; Z12.4 Encounter for screening for malignant neoplasm of cervix; Z00.00 Encounter for general adult medical examination without abnormal findings

== ENCOUNTER → 2024-08-05 16:01 | Outpatient (BNVA) | payer MEDICARE, MEDICAID, SELFPAY | PROVIDERS: PCP Family Medicine; Visit Provider Family Medicine | DX: Z00.00 Encounter for general adult medical examination without abnormal findings (principal); I10 Essential (primary) hypertension; E03.9 Hypothyroidism, unspecified; E55.9 Vitamin D deficiency, unspecified; E53.8 Deficiency of other specified B group vitamins; M79.7 Fibromyalgia; R21 Rash and other nonspecific skin eruption; R25.2 Cramp and spasm | CPT/HCPCS: 96127; 99212 ==

== ENCOUNTER 2024-08-12 08:21 | Outpatient (REF) | payer MEDICARE, MEDICAID, SELFPAY ==
[2024-08-12 08:36] LABS: MANUAL DIFF FLAG NO
[2024-08-12 08:42] LABS: Basophils Percent Auto 0.6 % (0-2); Eosinophils Absolute Auto 0.1 X10*3/uL (0.0-0.4); Eosinophils Percent Auto 1.6 % (0-4); Hematocrit 39.3 % (37.0-47.0); Hemoglobin 13.3 g/dl (12.0-16.0); Imm Gran Abs Auto 0.02 X10*3/uL (0.00-0.03); Imm Gran Pct Auto 0.4 % (0.0-0.4); Lymphocytes Absolute Auto 1.8 X10*3/uL (1.2-4.9); Lymphocytes Percent Auto 35.5 % (20-40); Mean Corpuscular HGB Conc 33.8 g/dl (31.0-35.0); Mean Corpuscular Hemoglobin 31.6 pg (27.0-33.0); Mean Corpuscular Volume 93.3 fL (80.0-98.0); Mean Platelet Volume 10.1 fL (9.4-12.3); Monocytes Absolute Auto 0.4 X10*3/uL (0.1-1.2); Monocytes Percent Auto 7.2 % (2-11); Neutrophils Absolute Auto 2.7 x10*3/uL (2.0-8.3); Neutrophils Percent Auto 54.7 % (45-73); Platelet Count 218 X10*3/uL (160-400); Red Blood Count 4.21 X10*6/uL (4.20-5.50); Red Cell Distribution Width 12.4 % (11.0-16.0)
[2024-08-12 09:16] LABS: Alanine Aminotransferase 14 U/L (0-31); Albumin Level 4.5 g/dL (3.5-5.0); Alkaline Phosphatase 75 U/L (39-117); Anion Gap 10 (12-20); Aspartate Amino Transferase 27 U/L (5-31); Blood Urea Nitrogen 11 mg/dL (9-16); Calcium 8.9 mg/dL (8.4-10.2); Carbon Dioxide 29 mmol/L (22-29); Chloride 105 mmol/L (96-108); Cholesterol 239 mg/dL (<200); Estimated Glomerular Filt Rate > 60; Glucose Fasting 91 mg/dL (60-99); HDL Cholesterol 61 mg/dL (>40); LDL Cholesterol Calculated 163 mg/dL (<100); Sodium 140 mmol/L (135-145); Total Protein 7.2 g/dL (6.5-8.0); Triglycerides 75 mg/dL (<150)
[2024-08-12 09:37] LABS: Free T4 (Free Thyroxine) 1.23 ng/dL (0.71-1.85); Thyroid Stimulating Hormone 3.81 uIU/mL (0.32-4.0); Vitamin D 25-OH Total 45.7 ng/mL (>30)
[2024-08-12 09:43] LABS: Folate 12.8 ng/mL (> or = 4.0); Vitamin B12 600 pg/mL (200-900)
[2024-08-12 10:52] LABS: Appearance Urine Clear; Color Urine Yellow; Glucose Urine UA Negative (Negative); Leukocyte Esterase Urine Negative (Negative); Nitrite Urine Negative (Negative); Urine Blood Negative (Negative); Urine Ketones Negative (Negative); Urine Protein Negative (Neg-Trace)
[2024-08-12 11:49] LABS: Creatinine Urine 50.03 mg/dL; Microalbum/Creatinine Ratio Ur 31.9 ug/mg cr (<30)
[2024-08-13 05:28] LABS: Triiodothyronine T3 Total 76 ng/dL (76-181)
== END 2024-08-12 08:22 | disposition home or self-care (01) ==
LOC: HO.LAB 08:21
PROVIDERS: PCP Family Medicine; Visit Provider Family Medicine
DX: Z00.00 Encounter for general adult medical examination without abnormal findings (principal); E55.9 Vitamin D deficiency, unspecified; I10 Essential (primary) hypertension; E53.8 Deficiency of other specified B group vitamins; E03.9 Hypothyroidism, unspecified
CPT/HCPCS: 36415; 80053; 80061; 81003; 82043; 82306; 82570; 82607; 82746; 84439; 84443; 84480; 85025

== ENCOUNTER → 2024-09-04 16:27 | Outpatient (BNVA) | payer MEDICARE, MEDICAID, SELFPAY | PROVIDERS: PCP Family Medicine; Visit Provider Family Medicine | DX: Z13.89 Encounter for screening for other disorder (principal) ==

== ENCOUNTER → 2024-09-04 16:27 | Outpatient (AMB) | payer MEDICARE, MEDICAID, SELFPAY ==
--- NOTE | 2024-09-04 15:04 | A.OFFPC_ITS ---
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 Labs drawn 08/12/24. Reviewed labs with pt. Triglycerides 75. TC 239. LDL worsened from 118 to 163. HDL 61. TSH 3.81. Free T4 1.23. Total T3 76 ng/dL. She is on levothyroxine 125mcg daily. [facility] Medical History Depression Goiter Surgical History History of partial thyroidectomy Hx of eye surgery Family History Father CVD (cardiovascular disease) Hypertension Hypothyroidism Mother Hypothyroidism Other Mental health disorder Substance use disorder Social History Housing: Apartment Alcohol intake: never Patient Tobacco Use Status: Former Tobacco user Tobacco use type: Cigarette e-Cigarette/Vaping Use: Never Used Second Hand Smoke Exposure: No service: No Current occupational status: disabled Current occupational exposures/hazards: No Cognitive needs: No Hearing needs: No Vision needs: No Questionnaire Thrive Questionnaire Date Thrive assessed: 08/05/24 SIDNEY-7 AMB Questionnaire SIDNEY-7 Date SIDNEY - 7 assessed: 09/20/21 Source: Developed by Drs. Frederic Rushing, Fide Harrington, Jeremiah Stone and colleagues, with an educational lorena from [employer]. Review of Systems Const Denies chills, Denies fatigue, Denies fever(s), Denies headache(s) and Denies weakness ENT Denies dizziness and Denies headache(s) Card Denies dyspnea Resp Denies cough, Denies dyspnea, Denies wheezing and Denies other (shortness of breath) Musc Denies numbness and Denies tingling Neuro Denies dizziness, Denies headache(s), Denies numbness, Denies tingling and Denies weakness Psych Denies anxiety and Denies depression Endo Denies fatigue Aller/Immun Denies wheezing Physical exam (Primary Care) Tobacco/Smoking Status: Tobacco use Status Tobacco use date assessed 08/05/24 09/04/24 15:05 Patient Tobacco Use Status Former Tobacco user 09/04/24 15:05 Tobacco use type Cigarette 09/04/24 15:05 e-Cigarette/Vaping Use Never Used 09/04/24 15:05 Thrive Assessment: Date of Thrive Assessment Date Thrive assessed 08/05/24 09/04/24 15:05 Telehealth Telehealth Telehealth Platform: Telephone Location of provider rendering services: practice address Location of patient: address on file Patient Identification confirmed using: Name, : Yes Telehealth method: voice only Patient verbally consented to treatment: Yes Patient verbally consented to billing insurance company: Yes Patient informed of any privacy concerns related to visit: Yes Minutes spent on Phone/Video with Pt.: 6 Coding Level of Care Code Tele Est Pt Level 2 (67490) Diagnoses Hypercholesterolemia E78.00 Hypothyroidism (acquired) E03.9 Assessment & Plan Assessment & Plan (1) Hypercholesterolemia: Code(s): E78.00 - Pure hypercholesterolemia, unspecified Category: Medical Plan: LDL?cholesterol?is?too?high?and?significantly?increased?from?prior?check?last?ye ar We?discussed?a?diet?lower?in?saturated?fats?and?cholesterol Will?recheck?in?a?few?months We?did?discuss?that?there?are?medications?that?can?be?used?if?cholesterol?is?not ?significantly?improving (2) Hypothyroidism (acquired): Code(s): E03.9 - Hypothyroidism, unspecified Category: Medical Plan: Patient?takes?levothyroxine Her?thyroid?hormone?levels?are?all?within?normal?range Continue?current?medication?regimen Orders: Orders Comprehensive [place]. Panel Fast Today E78.00 - Pure hypercholesterolemia, unspecified, Z00.00 - Encounter for general adult medical examination without abnormal findings TSH reflex Free T4 Today E03.9 - Hypothyroidism, unspecified, Z00.00 - Encounter for general adult medical examination without abnormal findings Lipid Panel Today E78.00 - Pure hypercholesterolemia, unspecified, Z00.00 - Encounter for general adult medical examination without abnormal findings
--- OUTSIDE RECORDS SUMMARY | 2024-09-04 19:46 | XMS_ITS | Patient Health Record ---
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 Name Role Phone NONE, NONE Primary Care Provider Frederic Echeverria Unavailable [phone] Allergies Allergen (clinical drug ingredient) Drug/Non Drug Allergy documented on EMR Reaction Allergy Type Onset Date Status Penicillin Unknown Drug Allergy Active ibuprofen Ibuprofen Unknown Drug Allergy Active Reason For Referral No Information Medications Medication SIG (Take, Route, Frequency, Duration) Notes Start Date End Date Status risperiDONE 0.25 MG TAKE 1 TABLET BY SOPHIA TH TWICE A DAY Oral for 90 Not-Taking Levothyroxine Sodium 125 MCG TAKE 1 TABLET BY MOUTH ONCE A DAY Oral for 90 Active Multivitamin & Mineral Active tylenol 1 tab Oral as needed Active Immunizations Vaccine Route Administration Date Status Comme nts Influenza Unknown 02/08/2018 Refused Social History Tobacco Use: Social History Observation Description Date Details (start date - stop date) Former Smoker NA - NA Tobacco Use/Smoking Question Answer Notes Patient is a former smoker How long has it been since you last smoked? 5-10 years Alcohol Screen Question Answer Notes Did you have a drink containing alcohol in the p ast year? No Points 0 Interpretation Negative Section Notes: Nonsmoker, no sig alcohol Problems Problem Type SNOMED Code ICD Code Onset Dates Problem Status W/U Status Risk Notes Problem 605104883 Encounter for screening for malignant neoplasm of colon (Z12.11) Active confirmed Problem 40520964 Abdominal pain, epigastric (R10.13) Active confirmed Problem 27810430 Irritable bowel syndrome, unspecified type (K58.9) Active confirmed Plan Of Treatment Pending Test Test Name Order Date SURGICAL 04/10/2018 Future Test Test Name Order Date UPPER GI ENDOSCOPY 02/08/2018 COLONOSCOPY 02/08/2018 Insurance Providers Payer Name Payer Address Payer Phone Subscriber Number Group Number Insured Name Patient Relationship to Insured Coverage Start Date Coverage End Date MEDICARE OF [place] [address] [place] [id number] [id number] SUKH SHIN Self - patient is the insured [place] [facility] [address] [place] [phone] [id number] SUKH SHIN Self - patient is the insured Medical (General) History Medical History History ICD Code Denies [place],DM,CVA,Lung disease,renal dise ase Depression/Bipolar disease Hyperthyroidism---surgery and radioactiv e iodine Surgical History Surgery Date(Month/Year) Partial thyroidectomy age 17
== END ==
LOC: HO.HMCFM 16:27
PROVIDERS: PCP Family Medicine; Visit Provider Family Medicine
DX: E78.00 Pure hypercholesterolemia, unspecified (principal); E03.9 Hypothyroidism, unspecified